=== PATIENT | male | born 1965 | race African-American/Black ===

== ENCOUNTER 2021-10-05 10:00 | Inpatient (IN) | payer OTHER ==
[2021-10-05 10:41] VITALS: BMI 19.8
[2021-10-05] MEDS ORDERED: ONDANSETRON *ODT* 4 MG TABLET SL PRN (11:17)
[2021-10-05] MEDS ORDERED: ACETAMINOPHEN 325 MG TABLET (FP) PO PRN ×2 (11:17)
[2021-10-05] MEDS ORDERED: NALOXONE HCL (KLOXXADO) 8 MG SPRAY NS PRN (11:17)
[2021-10-05] MEDS ORDERED: MAGNESIUM CITRATE 300 ML BOTTLE PO PRN (11:17)
[2021-10-05] MEDS ORDERED: chlordiazePOXIDE HCL 25 MG CAPSULE PO PRN (11:17)
[2021-10-05] MEDS ORDERED: BENZOCAINE/MENTHOL (CHLORASEPTIC ) LOZENGE MM PRN (11:17)
[2021-10-05] MEDS ORDERED: methaDONE HCL 10 MG TABLET (FOR DETOX USE ONLY) PO ONE (11:17)
[2021-10-05] MEDS ORDERED: NICOTINE 10 MG CARTRIDGE (INHALER) IH PRN (11:17)
[2021-10-05] MEDS ORDERED: MAG HYDROX/AL HYDROX/SIMETH 30 ML UNIT-DOSE CUP PO PRN (11:17)
[2021-10-05] MEDS ORDERED: LOPERAMIDE HCL 2 MG CAPSULE PO PRN (11:17)
[2021-10-05] MEDS ORDERED: IBUPROFEN 400 MG TABLET (FP) PO PRN (11:17)
[2021-10-05] MEDS ORDERED: MAGNESIUM HYDROX 2400MG/30ML ORAL SUSPENSION 30 ML CUP PO PRN (11:17)
[2021-10-05] MEDS ORDERED: DICYCLOMINE HCL 10 MG CAPSULE PO PRN (11:17)
[2021-10-05] MEDS ORDERED: BISMUTH SUBSALICYLATE 262 MG/15 ML BTL PO PRN (11:17)
[2021-10-05] MEDS ORDERED: cloNIDine HCL 0.1 MG TABLET PO PRN (11:17)
[2021-10-05] MEDS ORDERED: methaDONE HCL 10 MG TABLET (FOR DETOX USE ONLY) ONE (14:25)
[2021-10-05] MEDS: chlordiazePOXIDE HCL 25 MG CAPSULE PO SCH ×3 (14:57→23:51)
[2021-10-05] MEDS: NICOTINE 21 MG/24 HOURS TOPICAL PATCH TD SCH (14:58)
[2021-10-05] MEDS: hydrOXYzine PAMOATE 25 MG CAPSULE (FP) PO SCH ×3 (14:58→23:27)
[2021-10-05] MEDS: IBUPROFEN 600 MG TABLET (FP) PO PRN (15:00)
[2021-10-05 15:49] LABS: CALCIUM 9.7 mg/dL (8.5-10.1)
[2021-10-05 15:50] LABS: ALBUMIN 3.6 g/dl (3.4-5.0); BLOOD UREA NITROGEN 12.4 mg/dL (7-18)
[2021-10-05 15:53] LABS: CREATININE 1.1 mg/dL (0.55-1.3)
[2021-10-05 15:55] LABS: BILIRUBIN,TOTAL 0.8 mg/dL (0.2-1); TOT PROT 7.4 g/dl (6.4-8.2)
[2021-10-05] MEDS: THIAMINE HCL 100 MG TABLET (FP) PO SCH (23:27)
[2021-10-05] MEDS: MELATONIN 5 MG TABLETS PO SCH (23:51)
[2021-10-06] MEDS ORDERED: TRIMETHOBENZAMIDE HCL 200MG/2ML INJ IM ONE ×2 (00:02→18:08)
[2021-10-06] MEDS: METHOCARBAMOL 500 MG TABLET PO PRN ×2 (01:57→12:52)
[2021-10-06] MEDS: chlordiazePOXIDE HCL 25 MG CAPSULE PO SCH ×4 (05:30→19:12)
[2021-10-06] MEDS: hydrOXYzine PAMOATE 25 MG CAPSULE (FP) PO SCH ×4 (06:03→20:18)
[2021-10-06] MEDS ORDERED: methaDONE HCL 10 MG TABLET (FOR DETOX USE ONLY) ONE (09:19)
[2021-10-06] MEDS: PRENATAL VITAMINS W/ FOLIC ACID TABLET (FP) PO SCH (10:05)
[2021-10-06] MEDS: NICOTINE 21 MG/24 HOURS TOPICAL PATCH TD SCH (10:09)
[2021-10-06 10:44] LABS: HEMATOCRIT 42.5 % (35.4-49); MCH 27.8 pg (25.7-33.7); MEAN CELL VOLUME 84.4 fl (80-96); PLATELET COUNT 417 10^3/uL (134-434); RBC 5.03 M/mm3 (4.00-5.60); RDW 18.2 % (11.9-15.9); WHITE BLOOD COUNT 5.2 K/mm3 (4.0-10.0)
[2021-10-06 11:16] LABS: ANISOCYTOSIS 1+; MACROCYTOSIS 0
[2021-10-06] MEDS ORDERED: cloNIDine HCL 0.1 MG TABLET PO ONE (12:33)
[2021-10-06] MEDS ORDERED: METOPROLOL TARTRATE 25 MG TABLET (FP) PO ONE ×2 (18:10→19:15)
[2021-10-06] MEDS: MELATONIN 5 MG TABLETS PO SCH (23:45)
[2021-10-06] MEDS: THIAMINE HCL 100 MG TABLET (FP) PO SCH (23:45)
[2021-10-07] MEDS: chlordiazePOXIDE HCL 25 MG CAPSULE PO SCH ×4 (06:07→22:29)
[2021-10-07] MEDS ORDERED: methaDONE HCL 10 MG TABLET (FOR DETOX USE ONLY) PO ONE (10:00)
[2021-10-07 10:29] LABS: BASO % 0.3 % (0-2.0); EOS % 0.3 % (0-4.5); HEMATOCRIT 41.5 % (35.4-49); HEMOGLOBIN 14.1 GM/dL (11.7-16.9); LYMPH % 12.8 % (8-40); MCH 28.1 pg (25.7-33.7); MCHC 33.9 g/dl (32.0-35.9); MEAN CELL VOLUME 82.9 fl (80-96); MEAN PLT VOLUME 9.1 fl (7.5-11.1); MONO % 10.1 % (3.8-10.2); NEUT % 76.5 % (42.8-82.8); PLATELET COUNT 437 10^3/uL (134-434); RBC 5.01 M/mm3 (4.00-5.60); RDW 17.9 % (11.9-15.9); WHITE BLOOD COUNT 6.7 K/mm3 (4.0-10.0)
[2021-10-07] MEDS: PRENATAL VITAMINS W/ FOLIC ACID TABLET (FP) PO SCH (10:55)
[2021-10-07] MEDS: METHOCARBAMOL 500 MG TABLET PO PRN (10:55)
[2021-10-07] MEDS: NICOTINE 21 MG/24 HOURS TOPICAL PATCH TD SCH (10:56)
[2021-10-07] MEDS: THIAMINE HCL 100 MG TABLET (FP) PO SCH (22:29)
[2021-10-07] MEDS: MELATONIN 5 MG TABLETS PO SCH (22:37)
[2021-10-08] MEDS ORDERED: chlordiazePOXIDE HCL 10 MG CAPSULE PO PRN
[2021-10-08] MEDS: chlordiazePOXIDE HCL 10 MG CAPSULE PO SCH ×4 (05:39→22:47)
[2021-10-08] MEDS ORDERED: methaDONE HCL 10 MG TABLET (FOR DETOX USE ONLY) ONE (09:53)
[2021-10-08] MEDS ORDERED: amLODIPine BESYLATE 5 MG TABLET (FP) PO SCH (10:00)
[2021-10-08] MEDS: METHOCARBAMOL 500 MG TABLET PO PRN (10:02)
[2021-10-08] MEDS: PRENATAL VITAMINS W/ FOLIC ACID TABLET (FP) PO SCH (10:02)
[2021-10-08] MEDS: NICOTINE 21 MG/24 HOURS TOPICAL PATCH TD SCH (10:07)
[2021-10-08] MEDS ORDERED: LISINOPRIL 10 MG TABLET PO ONE (15:09)
[2021-10-08] MEDS: HYDROCHLOROTHIAZIDE 25 MG TABLET (FP) PO SCH (15:20)
[2021-10-08] MEDS: LISINOPRIL 10 MG TABLET PO SCH (22:47)
[2021-10-08] MEDS: THIAMINE HCL 100 MG TABLET (FP) PO SCH (22:47)
[2021-10-08] MEDS: MELATONIN 5 MG TABLETS PO SCH (22:48)
[2021-10-09] MEDS: chlordiazePOXIDE HCL 10 MG CAPSULE PO SCH ×3 (06:34→18:26)
[2021-10-09] MEDS ORDERED: methaDONE HCL 10 MG TABLET (FOR DETOX USE ONLY) PO ONE (10:00)
[2021-10-09] MEDS: HYDROCHLOROTHIAZIDE 25 MG TABLET (FP) PO SCH (10:26)
[2021-10-09] MEDS: LISINOPRIL 10 MG TABLET PO SCH ×2 (10:26→22:00)
[2021-10-09] MEDS: PRENATAL VITAMINS W/ FOLIC ACID TABLET (FP) PO SCH (10:26)
[2021-10-09] MEDS: amLODIPine BESYLATE 10 MG TABLET (FP) PO SCH (10:26)
[2021-10-09] MEDS: NICOTINE 21 MG/24 HOURS TOPICAL PATCH TD SCH (10:27)
[2021-10-09] MEDS: THIAMINE HCL 100 MG TABLET (FP) PO SCH (22:00)
[2021-10-09] MEDS: MELATONIN 5 MG TABLETS PO SCH (22:08)
[2021-10-10] MEDS ORDERED: chlordiazePOXIDE HCL 10 MG CAPSULE PO ONE (05:00)
[2021-10-10 06:07] VITALS: TEMP 98.1
[2021-10-10 08:46] VITALS: BP 123/68; PULSE 92
[2021-10-10] MEDS ORDERED: ASPIRIN 81 MG CHEWABLE TABLETS PO SCH (10:00)
[2021-10-10] MEDS: amLODIPine BESYLATE 10 MG TABLET (FP) PO SCH (10:25)
[2021-10-10] MEDS: IBUPROFEN 600 MG TABLET (FP) PO PRN (10:25)
[2021-10-10] MEDS: LISINOPRIL 10 MG TABLET PO SCH (10:25)
[2021-10-10] MEDS: PRENATAL VITAMINS W/ FOLIC ACID TABLET (FP) PO SCH (10:26)
[2021-10-10] MEDS: HYDROCHLOROTHIAZIDE 25 MG TABLET (FP) PO SCH (10:26)
[2021-10-10] MEDS: NICOTINE 21 MG/24 HOURS TOPICAL PATCH TD SCH (10:29)
== END 2021-10-10 13:34 | disposition home or self-care (01) | DRG 773 ==
LOC: YASAS 10:00 → Y6N 13:06
PROVIDERS: ADMIT Allergy & Immunology; ATTEND Surgery
PROC: HZ2ZZZZ Detoxification Services for Substance Abuse Treatment (ICD-10-PCS; principal; 2021-10-05)
DX: F11.23 Opioid dependence with withdrawal (principal); F10.230 Alcohol dependence with withdrawal, uncomplicated; F14.20 Cocaine dependence, uncomplicated; F12.20 Cannabis dependence, uncomplicated; F17.210 Nicotine dependence, cigarettes, uncomplicated; D75.839 Thrombocytosis, unspecified; I10 Essential (primary) hypertension; Z99.89 Dependence on other enabling machines and devices; Z59.00 Homelessness unspecified
CPT/HCPCS: 36415; 80053; 82947; 82962; 85025; 86780; 93005; 93010; C9803-CS; J0735; Q0162; U0003; U0005

== ENCOUNTER 2021-10-06 23:50 | Emergency (ER) | payer OTHER ==
[2021-10-07 00:08] VITALS: BP 154/109; PULSE 105; BMI 18.4
[2021-10-07 00:09] VITALS: TEMP 99.1
[2021-10-07] MEDS ORDERED: SODIUM CHLORIDE 0.9% 1000 ML INFUS.BAG IV ONE (00:31)
[2021-10-07] MEDS ORDERED: ONDANSETRON 4 MG/2 ML VIAL IVPUSH ONE (00:31)
[2021-10-07] MEDS ORDERED: ONDANSETRON 4 MG/2 ML VIAL ONE (00:59)
[2021-10-07] MEDS ORDERED: chlorproMAZINE HCL 25 MG/1 ML AMP IM ONE (01:09)
[2021-10-07] MEDS ORDERED: chlorproMAZINE HCL 25 MG/1 ML AMP ONE (01:45)
== END 2021-10-07 03:19 ==
LOC: JER 23:50
PROC: 3E023GC Introduction of Other Therapeutic Substance into Muscle, Percutaneous Approach (ICD-10-PCS; principal; 2021-10-06)
PROC: 3E033GC Introduction of Other Therapeutic Substance into Peripheral Vein, Percutaneous Approach (ICD-10-PCS; 2021-10-06)
DX: R11.2 Nausea with vomiting, unspecified (principal)
CPT/HCPCS: 99284-25

== ENCOUNTER 2023-06-10 17:35 | Inpatient (IN) | payer OTHER ==
[2023-06-10 18:27] VITALS: BMI 19.3
[2023-06-10] MEDS ORDERED: MAGNESIUM HYDROX 2400MG/30ML ORAL SUSPENSION 30 ML CUP PO PRN (19:40)
[2023-06-10] MEDS ORDERED: IBUPROFEN 400 MG TABLET (FP) PO PRN (19:40)
[2023-06-10] MEDS ORDERED: BENZONATATE 200 MG CAPSULE PO PRN (19:40)
[2023-06-10] MEDS ORDERED: IBUPROFEN 600 MG TABLET (FP) PO PRN (19:40)
[2023-06-10] MEDS ORDERED: guaiFENesin 600 MG TABLET.ER (FP) PO PRN (19:40)
[2023-06-10] MEDS ORDERED: MAG HYDROX/AL HYDROX/SIMETH 30 ML UNIT-DOSE CUP PO PRN (19:40)
[2023-06-10] MEDS ORDERED: NALOXONE HCL 0.4 MG/ML VIAL IM PRN (19:40)
[2023-06-10] MEDS ORDERED: NALOXONE HCL (KLOXXADO) 8 MG SPRAY NS PRN (19:40)
[2023-06-10] MEDS ORDERED: POLYETHYLENE GLYCOL (HEALTHYLAX) 3350 17 GM PACKET PO PRN (19:40)
[2023-06-10] MEDS ORDERED: BENZOCAINE/MENTHOL (CHLORASEPTIC ) LOZENGE MM PRN (19:40)
[2023-06-10] MEDS ORDERED: LOPERAMIDE HCL 2 MG CAPSULE ONE (23:37)
[2023-06-10] MEDS: LOPERAMIDE HCL 2 MG CAPSULE PO PRN (23:45)
[2023-06-10] MEDS: MELATONIN 5 MG TABLETS PO SCH (23:55)
[2023-06-10] MEDS: ACETAMINOPHEN 325 MG TABLET (FP) PO PRN (23:55)
[2023-06-10] MEDS: hydrOXYzine PAMOATE 25 MG CAPSULE (FP) PO PRN (23:55)
[2023-06-10] MEDS: THIAMINE HCL 100 MG TABLET (FP) PO SCH (23:55)
[2023-06-11] MEDS ORDERED: methaDONE HCL 10 MG TABLET PO SCH (10:00)
[2023-06-11] MEDS: amLODIPine BESYLATE 10 MG TABLET (FP) PO SCH (10:23)
[2023-06-11] MEDS: ASPIRIN 81 MG CHEWABLE TABLETS PO SCH (10:23)
[2023-06-11] MEDS: PRENATAL VITAMINS W/ FOLIC ACID TABLET (FP) PO SCH (10:23)
[2023-06-11 15:42] LABS: HEMATOCRIT 34.9 % (35.4-49); HEMOGLOBIN 11.4 GM/dL (11.7-16.9); MCHC 32.8 g/dl (32.0-35.9); MEAN CELL VOLUME 85.4 fl (80-96); MEAN PLT VOLUME 9.4 fl (7.5-11.1); PLATELET COUNT 349 10^3/uL (134-434); RBC 4.08 M/mm3 (4.00-5.60); RDW 18.4 % (11.9-15.9); WHITE BLOOD COUNT 5.1 K/mm3 (4.0-10.0)
[2023-06-11 15:57] LABS: URINE APPEARANCE CLEAR; URINE BILIRUBIN NEGATIVE (NEGATIVE); URINE COLOR YELLOW; URINE GLUCOSE (UA) NEGATIVE (NEGATIVE); URINE KETONE NEGATIVE (NEGATIVE); URINE LEUK ESTERASE NEGATIVE (NEGATIVE); URINE NITRITE NEGATIVE (NEGATIVE); URINE PROTEIN NEGATIVE (NEGATIVE); URINE UROBILINOGEN 0.2 mg/dL (0.2-1.0)
[2023-06-11 16:33] LABS: SYPHILIS W/ RPR CONF NON-REACTIVE (NONREACTIVE)
[2023-06-11 16:56] LABS: CHLORIDE 111 mmol/L (98-107); POTASSIUM 3.8 mmol/L (3.5-5.1); SODIUM 143 mmol/L (136-145)
[2023-06-11 16:59] LABS: ALBUMIN 2.6 g/dl (3.4-5.0); ANION GAP 4 mmol/L (4-13); BLOOD UREA NITROGEN 8.6 mg/dL (7-18); CALCIUM 8.6 mg/dL (8.5-10.1); CO2 28 mmol/L (21-32); GLUCOSE,RANDOM 109 mg/dL (74-106)
[2023-06-11 17:01] LABS: SGPT/ALT 12 U/L (13-61)
[2023-06-11 17:02] LABS: CREATININE 0.8 mg/dL (0.55-1.3); SGOT/AST 15 U/L (15-37)
[2023-06-11 17:03] LABS: ALK PHOS 58 U/L (45-117); BILIRUBIN,TOTAL 0.5 mg/dL (0.2-1); TOT PROT 5.7 g/dl (6.4-8.2)
[2023-06-18] MEDS ORDERED: methaDONE HCL 10 MG TABLET PO SCH (08:15)
[2023-06-26 07:11] VITALS: TEMP 97.7
[2023-06-27 06:56] VITALS: RESP 18
[2023-06-27 09:22] VITALS: BP 124/71; PULSE 68
== END 2023-06-27 10:50 | disposition home or self-care (01) | DRG 772 ==
LOC: YASAS 17:35 → Y3NR 23:21 → Y5N 06-11 13:12
PROVIDERS: ADMIT Allergy & Immunology; ATTEND Psychiatry & Neurology Pain Medicine
PROC: HZ42ZZZ Group Counseling for Substance Abuse Treatment, Cognitive-Behavioral (ICD-10-PCS; principal; 2023-06-10)
DX: F11.20 Opioid dependence, uncomplicated (principal); F14.20 Cocaine dependence, uncomplicated; F17.210 Nicotine dependence, cigarettes, uncomplicated; F41.9 Anxiety disorder, unspecified; G47.00 Insomnia, unspecified; I10 Essential (primary) hypertension; M54.50 Low back pain, unspecified; G89.29 Other chronic pain; Z86.718 Personal history of other venous thrombosis and embolism; Z28.310 Unvaccinated for COVID-19; Z28.9 Immunization not carried out for unspecified reason; Z59.00 Homelessness unspecified
CPT/HCPCS: 36415; 80053; 80305; 80307; 81003; 85027; 86780; 86803; 87635

== ENCOUNTER 2024-01-06 18:18 | Inpatient (IN) | payer OTHER ==
[2024-01-06 20:24] VITALS: BMI 18.3
[2024-01-06] MEDS ORDERED: MAGNESIUM HYDROX 2400MG/30ML ORAL SUSPENSION 30 ML CUP PO PRN (21:11)
[2024-01-06] MEDS ORDERED: ACETAMINOPHEN 325 MG TABLET (FP) PO PRN (21:11)
[2024-01-06] MEDS ORDERED: NALOXONE HCL 0.4 MG/ML VIAL IM PRN (21:11)
[2024-01-06] MEDS ORDERED: guaiFENesin 600 MG TABLET.ER (FP) PO PRN (21:11)
[2024-01-06] MEDS ORDERED: DICYCLOMINE HCL 10 MG CAPSULE PO PRN (21:11)
[2024-01-06] MEDS ORDERED: ONDANSETRON *ODT* 4 MG TABLET SL PRN (21:11)
[2024-01-06] MEDS ORDERED: NICOTINE POLACRILEX 2 MG LOZENGE BC PRN (21:11)
[2024-01-06] MEDS ORDERED: LOPERAMIDE HCL 2 MG CAPSULE PO PRN (21:11)
[2024-01-06] MEDS ORDERED: BENZONATATE 200 MG CAPSULE PO PRN (21:11)
[2024-01-06] MEDS ORDERED: MAG HYDROX/AL HYDROX/SIMETH 30 ML UNIT-DOSE CUP PO PRN (21:11)
[2024-01-06] MEDS ORDERED: POLYETHYLENE GLYCOL (HEALTHYLAX) 3350 17 GM PACKET PO PRN (21:11)
[2024-01-06] MEDS ORDERED: IBUPROFEN 600 MG TABLET (FP) PO PRN (21:11)
[2024-01-06] MEDS ORDERED: BISMUTH SUBSALICYLATE 524 MG/30 ML PO PRN (21:11)
[2024-01-06] MEDS ORDERED: NICOTINE POLACRILEX 2 MG GUM BUC PRN (21:11)
[2024-01-06] MEDS ORDERED: BENZOCAINE/MENTHOL (CHLORASEPTIC ) LOZENGE MM PRN (21:11)
[2024-01-06] MEDS ORDERED: P-EPHED 60MG/TRIPROLIDI 2.5MG TABLET PO PRN (21:11)
[2024-01-06] MEDS ORDERED: IBUPROFEN 400 MG TABLET (FP) PO PRN (21:11)
[2024-01-06] MEDS ORDERED: NALOXONE (NARCAN) HCL 4 MG/0.1 ML SPRAY NS PRN (21:11)
[2024-01-07] MEDS: THIAMINE 100 MG TABLET PO SCH (00:43)
[2024-01-07] MEDS: MELATONIN 5 MG TABLETS PO SCH (00:43)
[2024-01-07] MEDS ORDERED: methaDONE HCL 10 MG TABLET PO SCH (08:30)
[2024-01-07] MEDS ORDERED: chlordiazePOXIDE 5 MG CAPSULE PO PRN (09:06)
[2024-01-07] MEDS: PRENATAL VITAMINS W/ FOLIC ACID TABLET (FP) PO SCH (09:33)
[2024-01-07] MEDS: ASPIRIN 81 MG CHEWABLE TABLETS PO SCH (09:33)
[2024-01-07] MEDS: chlordiazePOXIDE HCL 25 MG CAPSULE PO SCH (11:00)
[2024-01-07 13:51] LABS: HEMATOCRIT 41.7 % (35.4-49); HEMOGLOBIN 13.8 GM/dL (11.7-16.9); MCH 29.8 pg (25.7-33.7); MCHC 33.1 g/dl (32.0-35.9); MEAN CELL VOLUME 89.8 fl (80-96); MEAN PLT VOLUME 8.6 fl (7.5-11.1); PLATELET COUNT 307 10^3/uL (134-434); RBC 4.65 M/mm3 (4.00-5.60); RDW 15.5 % (11.9-15.9); WHITE BLOOD COUNT 3.4 K/mm3 (4.0-10.0)
[2024-01-07 14:25] LABS: CHLORIDE 106 mmol/L (98-107); POTASSIUM 4.8 mmol/L (3.5-5.1); SODIUM 142 mmol/L (136-145)
[2024-01-07 14:29] LABS: ALBUMIN 3.8 g/dl (3.4-5.0); CALCIUM 9.8 mg/dL (8.5-10.1)
[2024-01-07 14:30] LABS: ANION GAP 3 mmol/L (4-13); BLOOD UREA NITROGEN 24.4 mg/dL (7-18); CO2 33 mmol/L (21-32); GLUCOSE,RANDOM 92 mg/dL (74-106)
[2024-01-07 14:32] LABS: SGPT/ALT 17 U/L (13-61)
[2024-01-07 14:33] LABS: CREATININE 1.1 mg/dL (0.55-1.3); SGOT/AST 14 U/L (15-37)
[2024-01-07 14:34] LABS: BILIRUBIN,TOTAL 0.8 mg/dL (0.2-1); TOT PROT 6.8 g/dl (6.4-8.2)
[2024-01-07 14:35] LABS: ALK PHOS 64 U/L (45-117)
[2024-01-08] MEDS ORDERED: methaDONE HCL 10 MG TABLET PO ONE (10:35)
[2024-01-09] MEDS: chlordiazePOXIDE 5 MG CAPSULE PO SCH (05:25)
[2024-01-10] MEDS ORDERED: chlordiazePOXIDE 5 MG CAPSULE PO PRN (00:01)
[2024-01-10] MEDS: chlordiazePOXIDE 5 MG CAPSULE PO SCH (05:28)
[2024-01-10] MEDS ORDERED: methaDONE HCL 10 MG TABLET PO SCH (06:00)
[2024-01-10] MEDS: METHOCARBAMOL 500 MG TABLET PO PRN (10:30)
[2024-01-11] MEDS: chlordiazePOXIDE 5 MG CAPSULE PO SCH (05:27)
[2024-01-12] MEDS: chlordiazePOXIDE 5 MG CAPSULE PO ONE (05:22)
[2024-01-12 06:18] VITALS: RESP 16
[2024-01-12 08:40] VITALS: BP 144/82; PULSE 56; TEMP 97.6
== END 2024-01-12 09:45 | disposition home or self-care (01) | DRG 773 ==
LOC: YASAS 18:18 → Y6N 22:50
PROVIDERS: ADMIT Allergy & Immunology; ATTEND Surgery
PROC: HZ2ZZZZ Detoxification Services for Substance Abuse Treatment (ICD-10-PCS; principal; 2024-01-06)
DX: F10.230 Alcohol dependence with withdrawal, uncomplicated (principal); F11.20 Opioid dependence, uncomplicated; F12.20 Cannabis dependence, uncomplicated; F17.210 Nicotine dependence, cigarettes, uncomplicated; I10 Essential (primary) hypertension; M19.90 Unspecified osteoarthritis, unspecified site; Z96.651 Presence of right artificial knee joint
CPT/HCPCS: 36415; 80053; 80305; 80307; 83036; 85027; 86780; 93005; 93010